=== PATIENT | female | born 1995 | race Caucasian/White ===

== ENCOUNTER 2019-02-10 03:35 | Emergency (ER) | payer OTHER ==
--- NOTE | 2019-02-10 03:38 | EDPHY ---
H & P Time Seen by Provider: 02/10/19 03:38 HPI/ROS: HPI CHIEF COMPLAINT: Abdominal pain HISTORY OF PRESENT ILLNESS: Patient is a 23-year-old female she presents emergency room with abdominal pain. She complains of periumbilical abdominal pain progressively getting worse over the past 2 days. Associated nausea but no vomiting. Patient denies any fever, denies chest pain, denies shortness of breath. No urinary symptoms, main complaint mid abdominal pain. She describes a burning sensation. She believes that it is due to the ice cream she ate yesterday. However this pain is persisted. Denies being , denies back pain, denies urinary symptoms. Past Medical History: Denies medical history Past Surgical History: Denies surgical history Social History: Denies drugs alcohol tobacco. Family History: Noncontributory ROS REVIEW OF SYSTEMS: 10 Systems were reviewed and negative with the exception of the elements mentioned in the history of present illness. Exam Constitutional triage nursing summary reviewed, vital signs reviewed, awake/ alert. Eyes normal conjunctivae and sclera, EOMI, PERRLA. HENT normal inspection, atraumatic, moist mucus membranes, no epistaxis, neck supple/ no meningismus, no raccoon eyes. Respiratory clear to auscultation bilaterally, normal breath sounds, no respiratory distress, no wheezing. Cardiovascular rate normal, regular rhythm, no murmur, no edema, distal pulses normal. Gastrointestinal soft, non-tender, no rebound, no guarding, normal bowel sounds, no distension, no pulsatile mass. Genitourinary no CVA tenderness. Musculoskeletal no midline vertebral tenderness, full range of motion, no calf swelling, no tenderness of extremities, no meningismus, good pulses, neurovascularly intact. Skin pink, warm, & dry, no rash, skin atraumatic. Neurologic awake, alert and oriented x 3, AAOx3, moves all 4 extremities equally, motor intact, sensory intact, CN II-XII intact, normal cerebellar, normal vision, normal speech. Psychiatric normal mood/affect. Heme/Lymph/Immune no lymphadenopathy. Differential Diagnosis: Differential diagnosis includes but is not limited to and in no particular order: Bowel obstruction, appendicitis, gallbladder disease, diverticulitis, colitis, enteritis, perforated viscus, gastritis, GERD , esophagitis, urinary tract infection, pyelonephritis, kidney stones Medical Decision Making: Plan for this patient IV establishment IV fluid bolus , basic labs, CT scan abdomen pelvis with IV contrast, rule out appendicitis, reason for CT scan acute abdominal pain. Re-evaluation: CT scan abdomen pelvis with IV contrast findings within the intestine tracks ingestion low-grade enteritis and mesenteric adenitis this was faxed to me by [facility] at 4:53 a.m.. The appendix is visualized and normal. Source: Patient Constitutional: Initial Vital Signs Temperature (C) 37.4 C 02/10/19 03:39 Heart Rate 94 02/10/19 03:39 Respiratory Rate 18 02/10/19 03:39 Blood Pressure 136/78 H 02/10/19 03:39 O2 Sat (%) 95 02/10/19 03:39 O2 Delivery Mode Room Air Allergies/Adverse Reactions: No Known Allergies Allergy (Unverified 02/10/19 03:39) Home Medications: Medication Instructions Recorded NK [No Known Home Meds] 02/10/19 Medical Decision Making - Data Points Laboratory Results: Laboratory Results 02/10/19 03:50 02/10/19 03:50 Medications Given: Discontinued Medications Hydromorphone HCl (Dilaudid) 0.5 mg IVP EDNOW ONE Stop: 02/10/19 03:44 Last Admin: 02/10/19 03:57 Dose: 0.5 mg Hydromorphone HCl (Dilaudid) 0.5 mg IVP EDNOW ONE Stop: 02/10/19 05:11 Last Admin: 02/10/19 05:15 Dose: 0.5 mg Sodium Chloride (Ns) 1,000 mls @ 0 mls/hr IV EDNOW ONE; Wide Open PRN Reason: Protocol Stop: 02/10/19 03:44 Last Admin: 02/10/19 03:49 Dose: 1,000 mls Sodium Chloride (Ns) 1,000 mls @ 0 mls/hr IV ONCE ONE PRN Reason: Wide Open Stop: 02/10/19 05:10 Last Admin: 02/10/19 05:15 Dose: 1,000 mls Ketorolac Tromethamine (Toradol) 15 mg IVP EDNOW ONE Stop: 02/10/19 05:45 Last Admin: 02/10/19 05:58 Dose: 15 mg Ondansetron HCl (Zofran) 4 mg IVP EDNOW ONE Stop: 02/10/19 03:44 Last Admin: 02/10/19 03:55 Dose: 4 mg Departure - Departure Disposition: Home, Routine, Self-Care Clinical Impression: Enteritis Abdominal pain Qualifiers: Abdominal location: generalized Qualified Code(s): R10.84 - Generalized abdominal pain Condition: Good Instructions: Acute Abdominal Pain (ED), Enteritis (ED) Additional Instructions: 1. [place] diet over the next 24 to 48 hours, no spicy, fatty or greasy food. 2. Return to the Emergency Room if you have worsening symptoms, this includes, vomiting, fever, abdominal pain or not doing well. 3. Advance your diet slowly. Referrals: Liana Camargo PA [Primary Care Provider] - As per Instructions
[2019-02-10] MEDS ORDERED: ONDANSETRON 4 MG/2 ML VIAL IVP ONE (03:43)
[2019-02-10] MEDS ORDERED: HYDROmorphONE/DILAUDID 2 MG/ML INJ IVP ONE ×2 (03:43→05:10)
[2019-02-10] MEDS ORDERED: NS 1,000 ML IV ONE ×2 (03:43→05:09)
[2019-02-10 04:03] LABS: PLATELET COUNT 239 10^3/uL (150-400)
[2019-02-10] MEDS ORDERED: IOPAMIDOL (ISOVUE-300) 100 ML BTL ONE (04:17)
[2019-02-10] MEDS ORDERED: KETOROLAC 15 MG/1 ML SDV IVP ONE (05:44)
[2019-02-10 08:24] VITALS: BP 110/79
== END 2019-02-10 08:26 | disposition home or self-care (01) ==
DX: K52.9 Noninfective gastroenteritis and colitis, unspecified (principal); R10.84 Generalized abdominal pain; E86.9 Volume depletion, unspecified
CPT/HCPCS: 96374; J1170; J1885; J2405; Q9967